=== PATIENT | female | born 1995 | race Caucasian/White ===

== ENCOUNTER 2019-05-22 17:34 | Emergency (ER) | payer MEDICAID ==
[~2019-05-22] VITALS: Ht 162.6 cm; Wt 56.0 kg
[2019-05-22] MEDS ORDERED: PREDNISONE 20MG TABLET PO ONE (18:30)
[2019-05-22] MEDS ORDERED: BUTALBITAL/ACETAMINOPHEN/CAFFEINE 50/325/40MG TABLET PO ONE (18:30)
[2019-05-22] MEDS ORDERED: DIPHENHYDRAMINE 50MG/ML VIAL IV ONE (18:30)
[2019-05-22] MEDS ORDERED: DIPHENHYDRAMINE 25MG CAPSULE PO ONE (20:15)
[2019-05-22 21:10] VITALS: BP 125/86
== END 2019-05-22 21:19 | disposition home or self-care (01) ==
LOC: ER 17:34
DX: S10.96XA Insect bite of unspecified part of neck, initial encounter (principal); R51 Headache; F12.10 Cannabis abuse, uncomplicated; W57.XXXA Bitten or stung by nonvenomous insect and other nonvenomous arthropods, initial encounter; Y93.89 Activity, other specified; Y92.89 Other specified places as the place of occurrence of the external cause; Y99.8 Other external cause status
CPT/HCPCS: 99284; J7512; Q0163; J1200

== ENCOUNTER 2019-07-30 23:34 | Emergency (ER) | payer MEDICAID ==
[~2019-07-30] VITALS: Ht 154.9 cm; Wt 53.5 kg
[2019-07-31] MEDS ORDERED: IBUPROFEN 600MG TABLET PO STA (00:27)
[2019-07-31] MEDS ORDERED: AMOXICILLIN/POTASSIUM CLAVULANATE 875/125MG TAB PO ONE (00:30)
[2019-07-31 00:45] VITALS: BP 115/75
== END 2019-07-31 00:50 | disposition home or self-care (01) ==
LOC: ER 23:34
DX: K02.9 Dental caries, unspecified (principal); K04.7 Periapical abscess without sinus; F12.10 Cannabis abuse, uncomplicated; Z88.2 Allergy status to sulfonamides
CPT/HCPCS: 99283

== ENCOUNTER 2021-02-07 02:00 | Emergency (ER) | payer MEDICAID ==
[~2021-02-07] VITALS: Ht 162.6 cm; Wt 51.4 kg
[2021-02-07] MEDS ORDERED: IBUPROFEN 400MG TABLET PO ONE (03:00)
[2021-02-07] MEDS ORDERED: ACETAMINOPHEN 325MG TABLET PO ONE (03:00)
[2021-02-07 04:04] VITALS: BP 106/79
== END 2021-02-07 04:13 | disposition home or self-care (01) ==
LOC: ER 02:00
DX: R07.89 Other chest pain (principal); F14.90 Cocaine use, unspecified, uncomplicated; F12.90 Cannabis use, unspecified, uncomplicated
CPT/HCPCS: 71045; 81025; 99283; Z7610

== ENCOUNTER 2022-03-29 23:22 | Emergency (ER) | payer MEDICAID ==
[~2022-03-29] VITALS: Ht 162.6 cm; Wt 53.2 kg
[2022-03-29 23:33] VITALS: BP 116/86
[2022-03-30] MEDS ORDERED: MUPI15CR11 TP (00:54)
== END 2022-03-30 01:09 | disposition home or self-care (01) ==
LOC: ER 23:22
DX: S71.112A Laceration without foreign body, left thigh, initial encounter (principal); S41.012A Laceration without foreign body of left shoulder, initial encounter; S00.83XA Contusion of other part of head, initial encounter; L08.89 Other specified local infections of the skin and subcutaneous tissue; Z88.2 Allergy status to sulfonamides; Y04.2XXA Assault by strike against or bumped into by another person, initial encounter; Y93.89 Activity, other specified; Y92.89 Other specified places as the place of occurrence of the external cause
CPT/HCPCS: 99281; 99283

== ENCOUNTER 2025-04-23 17:42 | Emergency (ER) | payer MEDICAID ==
[~2025-04-23] VITALS: Ht 167.6 cm; Wt 61.0 kg
[~2025-04-23 17:42] MED LIST: MUPI15CR11 TP
[2025-04-23 17:55] VITALS: O2SAT 100
[2025-04-23] MEDS ORDERED: TRIMO EACHEYE (18:56)
[2025-04-23 19:56] VITALS: BP 112/79; PULSE 76; RESP 16; TEMP 36.8; O2SAT 100
== END 2025-04-23 19:57 | disposition home or self-care (01) ==
LOC: ER 17:43
DX: H10.89 Other conjunctivitis (principal); F12.90 Cannabis use, unspecified, uncomplicated; F14.90 Cocaine use, unspecified, uncomplicated; Z79.899 Other long term (current) drug therapy; Z88.2 Allergy status to sulfonamides
CPT/HCPCS: 99283

== ENCOUNTER 2025-05-03 18:42 | Emergency (ER) | payer MEDICAID ==
[~2025-05-03] VITALS: Ht 162.6 cm; Wt 55.0 kg
[~2025-05-03 18:42] MED LIST changes: +TRIMO EACHEYE
[2025-05-03 19:00] VITALS: O2SAT 98
[2025-05-03 19:02] VITALS: BP 98/66; PULSE 75; RESP 14; TEMP 36.9; O2SAT 98
[2025-05-03] MEDS: TETRACAINE 0.5% OPHTH DROPS 4ML BOTHEYE ONE ×2 (19:15→20:45)
[2025-05-03] MEDS: FLUORESCEIN SODIUM 1MG/STRIP BOTHEYE ONE ×2 (19:15→20:45)
[2025-05-03] MEDS ORDERED: ACETAMINOPHEN 500MG TABLET PO ONE (19:15)
[2025-05-03 21:07] VITALS: TEMP 98.2
[2025-05-03] MEDS: ACETAMINOPHEN 500MG TABLET PO SCH (21:07)
[2025-05-03] MEDS ORDERED: BRIM1DRO EACHEYE (21:53)
== END 2025-05-03 22:37 | disposition home or self-care (01) ==
LOC: ER 18:42
DX: H10.89 Other conjunctivitis (principal); F12.90 Cannabis use, unspecified, uncomplicated; F14.90 Cocaine use, unspecified, uncomplicated; Z79.899 Other long term (current) drug therapy; Z88.2 Allergy status to sulfonamides
CPT/HCPCS: 99283